=== PATIENT | male | born 1980 | race African-American/Black ===

== ENCOUNTER 2016-12-02 11:12 | Emergency (ER) | payer OTHER ==
[~2016-12-02] VITALS: Ht 182.8 cm; Wt 122.5 kg
[~2016-12-02 11:12] MED LIST: AMOXICILLIN500 M2 PO; AMOXICILLIN500 MG PO; ANAPROX DS550 MG PO; ANTIBIOTIC O500 U/GM T; AUGMENTIN 500 M1 TAB PO; B12,B-12,B 12500 MC1 PO; BACTRIM DS 8001 TA1 PO; CEPHALEXIN500 M1 PO; CIPRO500 MG PO; CLARITIN-D 12 H1 TAB PO; DIAZEPAM2 MG PO; DIFLUCAN100 MG PO; FLOMAX0.4 MG PO; GOOD NEIGHBOR L10 MG PO; KEFLEX500 MG PO; LIDEX 0.05% CRE15 GM T; LOSARTAN POTASS1 TA5 PO; LOTRISONE 0.05%1 CRE TP; MEDROL DOSEPAK4 MG PO; MOTRIN800 MG PO; Motrin,Rufen800 MG PO; NAPROSYN500 MG PO; NKHM; PREDNISONE20 M1 PO; SEPTRA DS 800 M1 TAB PO; TAMIFLU 75MG CA75 MG PO; TAMSULOSIN HCL0.4 MG PO; TRAMADOL HCL50 MG PO; TRIMOX500 MG PO; VICODIN 5/500 505 MG PO; VICODIN 500 MG-1 TAB PO; [UNRECOGNIZED DRUG - MIXTURE] TP
[2016-12-02 11:37] LABS: BASO % 0.2 % (0.0-1.0); HEMATOCRIT 44.6 % (42.0-52.0); HEMOGLOBIN 14.8 g/dl (14.0-18.0); LYMPH % 17.1 % (27.0-41.0); MEAN CELL VOLUME 85.1 fl (80.0-94.0); MEAN CORPUSCULAR HGB 28.2 pg (27.0-31.0); MEAN CORPUSCULAR HGB CONC 33.2 g/dl (33.0-37.0); MEAN PLATELET VOLUME 11.6 fl (9.6-12.3); MONO # 0.6 10*3/uL (0.1-1.0); NEUT # 8.9 10*3/uL (2.3-7.9); NEUT % 77.3 % (47.0-73.0); PLATELET COUNT AUTOMATED 221 10*3/uL (130-400); RED BLOOD COUNT 5.24 10*6/uL (4.50-5.90); RED CELL DISTRI WIDTH 13.4 % (0-14.5); WHITE BLOOD COUNT 11.5 10*3/uL (4.8-10.8)
[2016-12-02 11:54] LABS: ALKALINE PHOSPHATASE 91 U/L (45-117); BUN 12 mg/dl (7-24); CHLORIDE 106 mmol/L (98-107); CREATININE 1.26 mg/dL (0.70-1.30); MAGNESIUM 2.1 mg/dL (1.5-2.1); SGOT/AST 11 IU/L (3-35); SGPT/ALT 26 U/L (12-78); SODIUM 141 mmol/L (136-145); TOTAL PROTEIN 8.1 gm/dL (6.4-8.2)
[2016-12-02 11:58] LABS: TROPONIN I < 0.015 ng/ml (<0.045)
== END 2016-12-02 14:25 | disposition home or self-care (01) ==
LOC: ED 11:12
PROVIDERS: Family Medicine Adult Medicine
DX: R07.89 Other chest pain (principal); R06.02 Shortness of breath; R11.0 Nausea; R61 Generalized hyperhidrosis; I25.10 Atherosclerotic heart disease of native coronary artery without angina pectoris; E78.5 Hyperlipidemia, unspecified; E11.9 Type 2 diabetes mellitus without complications; F12.10 Cannabis abuse, uncomplicated; F14.10 Cocaine abuse, uncomplicated; Z79.899 Other long term (current) drug therapy

== ENCOUNTER 2018-03-06 17:10 | Emergency (ER) | payer OTHER ==
[~2018-03-06] VITALS: Wt 124.7 kg
[2018-03-06] MEDS ORDERED: LOSARTAN-HCTZ1 EACH PO (19:42)
== END 2018-03-06 19:49 ==
LOC: ED 17:10
DX: I10 Essential (primary) hypertension (principal); M79.622 Pain in left upper arm; R05 Cough; R11.10 Vomiting, unspecified; F17.200 Nicotine dependence, unspecified, uncomplicated; Z79.899 Other long term (current) drug therapy; Z79.2 Long term (current) use of antibiotics

== ENCOUNTER 2018-05-06 13:49 | Emergency (ER) | payer OTHER ==
[~2018-05-06 13:49] MED LIST changes: +LOSARTAN-HCTZ1 EACH PO
[2018-05-06] MEDS ORDERED: TYLENOL325 M1 PO (13:59)
[2018-05-06] MEDS ORDERED: NAPROSYN500 MG PO (13:59)
[2018-05-06] MEDS ORDERED: PENICILLIN-VK500 MG PO (13:59)
== END 2018-05-06 14:40 | disposition home or self-care (01) ==
LOC: ED 13:49
DX: K02.9 Dental caries, unspecified (principal); K00.3 Mottled teeth

== ENCOUNTER 2018-07-20 06:00 | Emergency (ER) | payer OTHER ==
[~2018-07-20] VITALS: Ht 177.8 cm; Wt 124.7 kg
[~2018-07-20 06:00] MED LIST changes: +PENICILLIN-VK500 MG PO; +TYLENOL325 M1 PO
[2018-07-20] MEDS ORDERED: Motrin,Rufen800 MG PO (06:25)
[2018-07-20] MEDS ORDERED: AUGMENTIN 875875 MG PO (06:25)
== END 2018-07-20 06:44 | disposition home or self-care (01) ==
LOC: ED 06:00
DX: J02.9 Acute pharyngitis, unspecified (principal); J32.9 Chronic sinusitis, unspecified; I10 Essential (primary) hypertension; E66.9 Obesity, unspecified; E11.9 Type 2 diabetes mellitus without complications; F17.200 Nicotine dependence, unspecified, uncomplicated; Z79.899 Other long term (current) drug therapy; Z79.2 Long term (current) use of antibiotics; Z68.30 Body mass index [BMI] 30.0-30.9, adult; Z87.442 Personal history of urinary calculi

== ENCOUNTER 2018-11-27 21:29 | Emergency (ER) | payer OTHER ==
[~2018-11-27] VITALS: Ht 180.3 cm; Wt 127.0 kg
[~2018-11-27 21:29] MED LIST changes: +AUGMENTIN 875875 MG PO
[2018-11-27] MEDS ORDERED: MEDROL DOSEPAK4 MG PO (23:06)
== END 2018-11-27 23:44 | disposition home or self-care (01) ==
LOC: ED 21:29
DX: M10.072 Idiopathic gout, left ankle and foot (principal); F17.200 Nicotine dependence, unspecified, uncomplicated; Z79.899 Other long term (current) drug therapy

== ENCOUNTER 2019-08-02 00:58 | Emergency (ER) | payer OTHER ==
[~2019-08-02] VITALS: Ht 180.3 cm; Wt 124.7 kg
[2019-08-02] MEDS ORDERED: CLINDAMYCIN HC300 MG PO (01:20)
== END 2019-08-02 02:00 | disposition home or self-care (01) ==
LOC: ED 00:58
DX: S00.552A Superficial foreign body of oral cavity, initial encounter (principal); K02.9 Dental caries, unspecified; I10 Essential (primary) hypertension; Z79.899 Other long term (current) drug therapy; Z79.2 Long term (current) use of antibiotics; Z86.14 Personal history of Methicillin resistant Staphylococcus aureus infection; X58.XXXA Exposure to other specified factors, initial encounter; Y93.89 Activity, other specified; Y92.89 Other specified places as the place of occurrence of the external cause; Y99.8 Other external cause status

== ENCOUNTER 2020-04-13 20:03 | Emergency (ER) | payer OTHER ==
[~2020-04-13] VITALS: Ht 182.8 cm; Wt 124.7 kg
[~2020-04-13 20:03] MED LIST changes: +CLINDAMYCIN HC300 MG PO
== END 2020-04-13 21:38 | disposition home or self-care (01) ==
LOC: ED 20:03
DX: S62.397A Other fracture of fifth metacarpal bone, left hand, initial encounter for closed fracture (principal); I10 Essential (primary) hypertension; F17.200 Nicotine dependence, unspecified, uncomplicated; Z86.14 Personal history of Methicillin resistant Staphylococcus aureus infection; Z79.2 Long term (current) use of antibiotics; Z79.899 Other long term (current) drug therapy; W01.0XXA Fall on same level from slipping, tripping and stumbling without subsequent striking against object, initial encounter; Y93.89 Activity, other specified; Y92.89 Other specified places as the place of occurrence of the external cause; Y99.8 Other external cause status

== ENCOUNTER 2021-02-25 16:33 | Emergency (ER) | payer OTHER ==
[~2021-02-25] VITALS: Wt 134.3 kg
[2021-02-25 17:22] LABS: BASO # 0.1 10*3/uL (0.0-0.1); BASO % 0.4 % (0.0-1.0); EOS # 0.1 10*3/uL (0.0-0.4); EOS % 0.8 % (1.0-4.0); HEMATOCRIT 45.8 % (42.0-52.0); LYMPH # 4.9 10*3/uL (1.3-4.4); MEAN CELL VOLUME 87.2 fl (80.0-94.0); MEAN CORPUSCULAR HGB 28.4 pg (27.0-31.0); MEAN CORPUSCULAR HGB CONC 32.5 g/dl (33.0-37.0); MEAN PLATELET VOLUME 11.5 fl (9.6-12.3); MONO # 1.1 10*3/uL (0.1-1.0); MONO % 8.2 % (3.0-9.0); NEUT # 7.3 10*3/uL (2.3-7.9); NEUT % 54.3 % (47.0-73.0); PLATELET COUNT AUTOMATED 244 10*3/uL (130-400); RED BLOOD COUNT 5.25 10*6/uL (4.50-5.90); RED CELL DISTRI WIDTH 13.6 % (0-14.5); WHITE BLOOD COUNT 13.5 10*3/uL (4.8-10.8)
[2021-02-25 17:38] LABS: BILIRUBIN Negative (Negative); BLOOD 3+ (Negative); CLARITY Turbid (Clear); COLOR Red (Yellow); GLUCOSE Negative (Negative); KETONE Negative (Negative); LEUKO ESTERASE 1+ (Negative); NITRITE Negative (Negative); PH 5.5 (4.5-8.0); SPECIFIC GRAVITY >= 1.030 (1.001-1.030); UROBILINOGEN 0.2 E.U./dl (0.0-1.0)
[2021-02-25 17:38] LABS: ALBUMIN 3.5 gm/dl (3.1-4.5); CREATININE 1.65 mg/dL (0.70-1.30); POTASSIUM 3.9 mmol/L (3.5-5.1); TOTAL PROTEIN 7.8 gm/dL (6.4-8.2)
[2021-02-25 17:44] LABS: RBC TNTC rbc/hpf (0-2)
[2021-02-25] MEDS ORDERED: VICO10300 PO (18:43)
== END 2021-02-25 18:44 | disposition home or self-care (01) ==
LOC: ED 16:33
PROVIDERS: Nurse Practitioner Family
DX: N20.0 Calculus of kidney (principal); Z79.899 Other long term (current) drug therapy

== ENCOUNTER 2021-02-26 05:21 | Emergency (ER) | payer OTHER ==
[~2021-02-26 05:21] MED LIST changes: +VICO10300 PO
== END 2021-02-26 06:29 | disposition home or self-care (01) ==
LOC: ED 05:21
DX: N20.1 Calculus of ureter (principal); Z79.899 Other long term (current) drug therapy

== ENCOUNTER 2021-03-12 08:02 | Emergency (ER) | payer OTHER ==
[~2021-03-12] VITALS: Ht 180.3 cm; Wt 131.1 kg
[2021-03-12] MEDS ORDERED: MITIGARE0.6 MG PO (08:40)
== END 2021-03-12 08:52 | disposition home or self-care (01) ==
LOC: ED 08:02
DX: M10.9 Gout, unspecified (principal); Z79.899 Other long term (current) drug therapy; I10 Essential (primary) hypertension; Z87.891 Personal history of nicotine dependence

== ENCOUNTER 2021-11-22 12:24 | Emergency (ER) | payer OTHER ==
[~2021-11-22] VITALS: Ht 180.3 cm; Wt 129.7 kg
[~2021-11-22 12:24] MED LIST changes: +MITIGARE0.6 MG PO
[2021-11-22] MEDS ORDERED: PREDNISONE20 M1 PO (13:50)
[2021-11-22] MEDS ORDERED: Bactroban Oint22 GM T (13:50)
[2021-11-22] MEDS ORDERED: HYDROXYZINE HCL25 MG PO (13:50)
== END 2021-11-22 14:27 | disposition home or self-care (01) ==
LOC: ED 12:24
DX: L25.9 Unspecified contact dermatitis, unspecified cause (principal); Z79.899 Other long term (current) drug therapy; Z87.891 Personal history of nicotine dependence

== ENCOUNTER → 2022-04-12 | Outpatient (CLI) | payer OTHER ==
[~2022-04-12] MED LIST changes: +Bactroban Oint22 GM T; +HYDROXYZINE HCL25 MG PO
== END | disposition home or self-care (01) ==
LOC: RAD 08:27
PROVIDERS: ATTEND Internal Medicine Nephrology
DX: M54.31 Sciatica, right side (principal)

== ENCOUNTER 2022-06-13 16:54 | Emergency (ER) | payer OTHER | END 2022-06-13 18:53 | disposition left against medical advice (07) | LOC: ED 16:54 | DX: M10.9 Gout, unspecified (principal); Z53.21 Procedure and treatment not carried out due to patient leaving prior to being seen by health care provider ==

== ENCOUNTER 2022-07-24 22:19 | Emergency (ER) | payer OTHER ==
[2022-07-24] MEDS ORDERED: NAPROSYN500 MG PO (22:53)
[2022-07-24] MEDS ORDERED: METHOCARBAMOL750 M1 PO (22:53)
[2022-07-25] MEDS ORDERED: HYDROCODONE-AC1 EAC1 PO (18:23)
[2022-07-25] MEDS ORDERED: PREDNISONE50 MG PO (18:23)
== END 2022-07-24 23:15 | disposition home or self-care (01) ==
LOC: ED 22:19
DX: S29.012A Strain of muscle and tendon of back wall of thorax, initial encounter (principal); R20.0 Anesthesia of skin; I10 Essential (primary) hypertension; Z87.442 Personal history of urinary calculi; M10.9 Gout, unspecified; Z98.890 Other specified postprocedural states; F14.10 Cocaine abuse, uncomplicated; F12.10 Cannabis abuse, uncomplicated; F17.200 Nicotine dependence, unspecified, uncomplicated; X58.XXXA Exposure to other specified factors, initial encounter; Y93.89 Activity, other specified; Y92.89 Other specified places as the place of occurrence of the external cause; Y99.8 Other external cause status

== ENCOUNTER 2022-07-25 15:50 | Emergency (ER) | payer OTHER ==
[~2022-07-25] VITALS: Ht 180.3 cm; Wt 124.3 kg
[~2022-07-25 15:50] MED LIST changes: +METHOCARBAMOL750 M1 PO
[2022-07-25] MEDS ORDERED: HYDROCODONE-AC1 EAC1 PO (18:23)
[2022-07-25] MEDS ORDERED: PREDNISONE50 MG PO (18:23)
== END 2022-07-25 19:08 | disposition home or self-care (01) ==
LOC: ED 15:50
DX: S16.1XXA Strain of muscle, fascia and tendon at neck level, initial encounter (principal); M79.602 Pain in left arm; I10 Essential (primary) hypertension; Z87.442 Personal history of urinary calculi; M10.9 Gout, unspecified; Z98.890 Other specified postprocedural states; F14.10 Cocaine abuse, uncomplicated; F12.10 Cannabis abuse, uncomplicated; F17.200 Nicotine dependence, unspecified, uncomplicated; F19.10 Other psychoactive substance abuse, uncomplicated; X50.1XXA Overexertion from prolonged static or awkward postures, initial encounter; Y93.89 Activity, other specified; Y92.89 Other specified places as the place of occurrence of the external cause; Y99.8 Other external cause status

== ENCOUNTER 2022-11-29 07:06 | Emergency (ER) | payer OTHER ==
[~2022-11-29] VITALS: Ht 180.3 cm; Wt 122.5 kg
[~2022-11-29 07:06] MED LIST changes: +HYDROCODONE-AC1 EAC1 PO; +PREDNISONE50 MG PO
[2022-11-29] MEDS ORDERED: PREDNISONE10 MG PO (08:07)
== END 2022-11-29 08:36 | disposition home or self-care (01) ==
LOC: ED 07:06
DX: M10.9 Gout, unspecified (principal); I10 Essential (primary) hypertension; Z87.442 Personal history of urinary calculi; Z98.890 Other specified postprocedural states; F14.10 Cocaine abuse, uncomplicated; F17.200 Nicotine dependence, unspecified, uncomplicated; F12.10 Cannabis abuse, uncomplicated

== ENCOUNTER 2023-09-03 00:08 | Emergency (ER) | payer OTHER ==
[~2023-09-03] VITALS: Ht 175.2 cm; Wt 129.3 kg
[~2023-09-03 00:08] MED LIST changes: +PREDNISONE10 MG PO
== END 2023-09-03 01:05 | disposition left against medical advice (07) ==
LOC: ED 00:08
DX: M79.671 Pain in right foot (principal); Z53.29 Procedure and treatment not carried out because of patient's decision for other reasons; M10.9 Gout, unspecified; I10 Essential (primary) hypertension; Z87.442 Personal history of urinary calculi; F14.10 Cocaine abuse, uncomplicated; F12.10 Cannabis abuse, uncomplicated; F17.200 Nicotine dependence, unspecified, uncomplicated; Z98.890 Other specified postprocedural states

== ENCOUNTER → 2023-10-18 | Outpatient (CLI) | payer OTHER | END | disposition home or self-care (01) | LOC: ORTHO 10:47 | PROVIDERS: ATTEND Orthopaedic Surgery | DX: S92.351D Displaced fracture of fifth metatarsal bone, right foot, subsequent encounter for fracture with routine healing (principal); X58.XXXD Exposure to other specified factors, subsequent encounter ==

== ENCOUNTER 2024-05-05 09:00 | Emergency (ER) | payer OTHER ==
[~2024-05-05] VITALS: Ht 180.3 cm; Wt 131.1 kg
[2024-05-05] MEDS ORDERED: ALLOPURINOL300 MG PO (09:34)
[2024-05-05] MEDS ORDERED: VIVITROL380 MG IM (09:34)
[2024-05-05] MEDS ORDERED: PERCOCET 5-3251 EACH PO (09:45)
[2024-05-05] MEDS ORDERED: PREDNISONE20 M1 PO (09:45)
[2024-05-05] MEDS ORDERED: Acetaminophen/Oxycodone 5 MG/325 MG TABLET PO ONE (09:45)
[2024-05-05] MEDS ORDERED: predniSONE 20 MG TAB PO ONE (09:45)
== END 2024-05-05 09:58 | disposition home or self-care (01) ==
LOC: ED 09:00
DX: M10.9 Gout, unspecified (principal); E11.9 Type 2 diabetes mellitus without complications; I10 Essential (primary) hypertension; E78.5 Hyperlipidemia, unspecified; F14.10 Cocaine abuse, uncomplicated; F12.10 Cannabis abuse, uncomplicated; F17.200 Nicotine dependence, unspecified, uncomplicated; F10.90 Alcohol use, unspecified, uncomplicated; F19.10 Other psychoactive substance abuse, uncomplicated; Z98.890 Other specified postprocedural states

== ENCOUNTER 2024-12-15 19:30 | Emergency (ER) | payer OTHER ==
[~2024-12-15] VITALS: Ht 175.2 cm; Wt 131.1 kg
[~2024-12-15 19:30] MED LIST changes: +ALLOPURINOL300 MG PO; +PERCOCET 5-3251 EACH PO; +VIVITROL380 MG IM
== END 2024-12-15 20:50 | disposition home or self-care (01) ==
LOC: ED 19:30
DX: M25.531 Pain in right wrist (principal); F17.200 Nicotine dependence, unspecified, uncomplicated; Z79.899 Other long term (current) drug therapy